=== PATIENT | female | born 1960 | race Caucasian/White ===

== ENCOUNTER 2017-02-13 12:01 | Emergency (ER) | payer MEDICAID ==
[~2017-02-13] VITALS: Ht 142.2 cm; Wt 80.3 kg
[2017-02-13 14:19] VITALS: BP 125/76
== END 2017-02-13 14:19 | disposition home or self-care (01) ==
LOC: ED 12:01
DX: R51 Headache (principal); R03.0 Elevated blood-pressure reading, without diagnosis of hypertension
CPT/HCPCS: 82962; J0780; J1885

== ENCOUNTER 2018-03-19 17:50 | Emergency (ER) | payer MEDICAID ==
[~2018-03-19] VITALS: Ht 152.4 cm; Wt 81.2 kg
[2018-03-19 17:51] VITALS: Ht 152.4 cm; Wt 81.2 kg
[2018-03-19 19:15] VITALS: BP 115/68
== END 2018-03-19 19:15 | disposition home or self-care (01) ==
LOC: ED 17:50
DX: H43.391 Other vitreous opacities, right eye (principal)